=== PATIENT | female | born 1970 | race African-American/Black ===

== ENCOUNTER 2020-11-02 12:15 | Emergency (ER) | payer MEDICAID ==
[~2020-11-02] VITALS: Ht 175.3 cm; Wt 56.0 kg
[2020-11-02] MEDS ORDERED: HYDR25TA PO (12:56)
[2020-11-02] MEDS ORDERED: PRO1 PO (12:56)
[2020-11-02] MEDS ORDERED: CYCL10TA7 MT (13:44)
[2020-11-02] MEDS ORDERED: NAPR-1176 MT (13:44)
[2020-11-02] MEDS ORDERED: KETOROLAC 30MG/ML VIAL IM ONE (13:45)
[2020-11-02] MEDS ORDERED: CYCLOBENZAPRINE 10MG TABLET PO ONE (13:45)
[2020-11-02 14:00] VITALS: BP 112/78
== END 2020-11-02 14:01 | disposition home or self-care (01) ==
LOC: ER 12:52
DX: S16.1XXA Strain of muscle, fascia and tendon at neck level, initial encounter (principal); I10 Essential (primary) hypertension; Z98.890 Other specified postprocedural states; X58.XXXA Exposure to other specified factors, initial encounter; Y93.89 Activity, other specified; Y92.89 Other specified places as the place of occurrence of the external cause; Y99.8 Other external cause status
CPT/HCPCS: 96372; 99283; J1885